=== PATIENT | female | born 1970 | race Caucasian/White ===

== ENCOUNTER 2016-07-18 00:36 | Emergency (ER) | payer BC, OTHER ==
[2016-07-18 00:53] VITALS: BP 139/89
[2016-07-18] MEDS ORDERED: Acetaminophen 325 MG Tab PO ONE (01:38)
[2016-07-18] MEDS ORDERED: Bacitracin Oint 1 GM U/D Packet TOP ONE (01:38)
--- NOTE | 2016-07-18 01:41 | EDM.PDOC ---
ED HPI GENERAL MEDICAL PROBLEM - General Chief Complaint: Head Injury Stated Complaint: FELL,FACE INJURY Time Seen by Provider: 07/18/16 01:38 - History of Present Illness INITIAL COMMENTS - FREE TEXT/NARRATIVE: HISTORY AND PHYSICAL: History of present illness: This is a healthy 46-year-old female who presents after she was walking her dog her dog pulled her causing her to fall flow her onto her hands and knees and face. She did not pass out or black out and has no posterior head neck or back pain but has scattered bruises and pain to her left knee her right ankle bilateral hands and mostly her face around her nose. She went to pain at her nose and her forehead but had no tooth loss and no visual changes. She had no gross bleeding from her nose She is speaking clearly and easily Review of systems: As per history of present illness and below otherwise all systems reviewed and negative. Past medical history: As per history of present illness and as reviewed below otherwise noncontributory. Surgical history: As per history of present illness and as reviewed below otherwise noncontributory. Social history: No reported history of drug or alcohol abuse. Family history: As per history of present illness and as reviewed below otherwise noncontributory. Physical exam: General: Well-developed well-nourished female speaking clearly in the ER and easily. HEENT: Atraumatic except for some soft tissue swelling and a superficial abrasion at her right forehead area and bruising contusions and tenderness at her nose area. There is no bleeding from her nose her TMs are normal bilaterally. EOMs are intact and there are no gross palpable bony deformities and the nose is stable. Bite is normal and teeth are intact., normocephalic, pupils reactive, negative for conjunctival pallor or scleral icterus, mucous membranes moist, throat clear, neck supple, nontender, trachea midline. Her are no midline step-offs or defects of the cervical spine Lungs: Clear to auscultation, breath sounds equal bilaterally, chest nontender. Heart: S1S2, regular, negative for clicks, rubs, or JVD. Abdomen: Soft, nondistended, nontender. NABS Pelvis: Stable nontender. Genitourinary: Deferred. Rectal: Deferred. Extremities: Atraumatic full range of motion with the exception of some soft tissue swelling and small bruise at her left knee similar to her right ankle and bilateral palms of her hands all of these areas without palpable bony deformities or decreased range of motion. The legs are, negative for cords or calf pain. Neurovascular unremarkable. Neuro: Awake, alert, oriented. Cranial nerves II through XII unremarkable. Cerebellum unremarkable. Motor and sensory unremarkable throughout. Exam nonfocal. Diagnostics: Nasal bone x-rays Therapeutics: Tylenol ice pack bacitracin to abrasions Patient is aware of the x-ray result and need for followup with ENT, Dr. Betancur. I've advised her and cautioned her on things she should be careful of and watch for and reasons to return to the ED. Impression: Nasal bone fracture and Facial contusions and scattered extremity contusion status post fall Definitive disposition and diagnosis as appropriate pending reevaluation and review of above. facial Pain Score (Numeric/FACES): 7 - Related Data Allergies Allergy/AdvReac Type Severity Reaction Status Date / Time No Known Allergies Allergy Verified 07/18/16 00:47 Home Meds: Home Meds Birthcontrol 07/18/16 [History] Eluxadoline [Viberzi] 75 mg PO DAILY 07/18/16 [History] buPROPion [Wellbutrin] 100 mg PO BID 07/18/16 [History] Past Medical History - Past Health History Medical/Surgical History: Denies Medical/Surgical History HEENT History: Reports: None Cardiovascular History: Reports: None Respiratory History: Reports: None Gastrointestinal History: Reports: None Genitourinary History: Reports: None [employer] History: Reports: None Musculoskeletal History: Reports: None Neurological History: Reports: None Psychiatric History: Reports: Depression Endocrine/Metabolic History: Reports: None Hematologic History: Reports: None Oncologic (Cancer) History: Reports: None Dermatologic History: Reports: None - Infectious Disease History Infectious Disease History: Reports: None - Past Surgical History Female Surgical History: Reports: None Social & Family History - Family History Family Medical History: Noncontributory - Tobacco Use Smoking Status *Q: Current Every Day Smoker Years of Tobacco use: 20 Packs/Tins Daily: 1 - Recreational Drug Use Recreational Drug Use: No ED ROS GENERAL - Review of Systems Review Of Systems: ROS reveals no pertinent complaints other than HPI. ED EXAM, HEAD INJURY - Physical Exam Exam: See Below (See dictation) Course - Vital Signs Last Recorded V/S: Last Vital Signs Temp 36.1 C 07/18/16 00:49 Pulse 80 07/18/16 00:49 Resp 18 07/18/16 00:49 BP 139/89 07/18/16 00:49 Pulse Ox 98 07/18/16 00:49 - Orders/Labs/Meds Orders: Active Orders 24 hr Category Date Time Status Nasal Bone Min 3V [CR] Stat Exams 07/18/16 01:18 Taken Meds: Medications Discontinued Medications Generic Name Dose Route Start Last Admin Trade Name Orly PRN Reason Stop Dose Admin Acetaminophen 650 mg 07/18/16 01:38 07/18/16 02:00 Tylenol PO 07/18/16 01:39 650 mg NOW ONE Administration Bacitracin 1 dose 07/18/16 01:38 07/18/16 02:00 Bacitracin Oint 1 Gm TOP 07/18/16 01:39 1 dose ONETIME ONE Administration Departure - Departure Time of Disposition: 02:08 Disposition: Home, Self-Care 01 Condition: good Clinical Impression: Multiple contusions Fall Qualifiers: Encounter type: initial encounter Qualified Code(s): W19.XXXA - Unspecified fall, initial encounter Nasal bone fracture Qualifiers: Encounter type: initial encounter Fracture type: closed Qualified Code(s): S02.2XXA - Fracture of nasal bones, initial encounter for closed fracture - Discharge Information Forms: ED Department Discharge Additional Instructions: The following information is given to patients seen in the emergency department who are being discharged to home. This information is to outline your options for follow-up care. We provide all patients seen in our emergency department with a follow-up referral. The need for follow-up, as well as the timing and circumstances, are variable depending upon the specifics of your emergency department visit. If you don't have a primary care physician on staff, we will provide you with a referral. We always advise you to contact your personal physician following an emergency department visit to inform them of the circumstance of the visit and for follow-up with them and/or the need for any referrals to a consulting specialist. The emergency department will also refer you to a specialist when appropriate. This referral assures that you have the opportunity for followup care with a specialist. All of these measure are taken in an effort to provide you with optimal care, which includes your followup. Under all circumstances we always encourage you to contact your private physician who remains a resource for coordinating your care. When calling for followup care, please make the office aware that this follow-up is from your recent emergency room visit. If for any reason you are refused follow-up, please contact the [facility] emergency department at and ask to speak to the emergency department charge nurse. [facility] Primary care- Internal Medicine and Family [address] [place] [id number] [facility] Specialty Care - ENT- Dr Betancur [address] [place] [phone] Ice to all areas of swelling and pain and expect aches and pains for the next several days to one week. You may have drainage of mucus and/or blood from her nose and ABSOLUTELY do not blow your nose. Sleep on at least 3 pillows or any good inclined to promote sinus drainage. Take antibiotics as directed and use [id number] Tylenol/ibuprofen for pain. Please call and followup with our ENT physician Dr. Betancur next week and return to ER as needed and as discussed - My Orders Last 24 Hours: My Active Orders 07/18/16 01:18 Nasal Bone Min 3V [CR] Stat - Assessment/Plan Last 24 Hours: My Active Orders 07/18/16 01:18 Nasal Bone Min 3V [CR] Stat
--- NOTE | 2016-07-20 14:43 | CR ---
EXAM DATE: 07/18/16 PATIENT'S AGE: 46 Patient: MICKI FIERRO Facility: [place], [place] Site . Site : 1970 Study: XRay Facial NASAL BONE [id number]/13/2017 1:34:36 AM Ordering Physician: Doctor Anthony Final Report: Indication: Fall, landed on nose, abrasion to nose Technique: Three views nasal bones Comparison: None Findings/impression: : There is a minimally displaced fracture of one and possibly both nasal bones. A CT of the face may be useful for further evaluation if clinically indicated. Remainder of the osseous structures appear intact. The paranasal sinuses are normally aerated. Dictated by Yuni Patel MD @ Jul 18 2016 1:42AM (Electronic Signature) Report Signed by Proxy. KYLE
== END 2016-07-18 02:24 | disposition home or self-care (01) ==
LOC: MW.ED 00:36
DX: S02.2XXA Fracture of nasal bones, initial encounter for closed fracture (principal); S80.02XA Contusion of left knee, initial encounter; S60.222A Contusion of left hand, initial encounter; S60.221A Contusion of right hand, initial encounter; S90.01XA Contusion of right ankle, initial encounter; S00.81XA Abrasion of other part of head, initial encounter; F17.210 Nicotine dependence, cigarettes, uncomplicated; F32.9 Major depressive disorder, single episode, unspecified; Z79.899 Other long term (current) drug therapy; W19.XXXA Unspecified fall, initial encounter; Y93.K1 Activity, walking an animal
CPT/HCPCS: 70160; 99283; A9270